=== PATIENT | male | born 1940 | race Caucasian/White ===

== ENCOUNTER 2019-04-22 15:51 | Outpatient (CLI) | payer MEDICARE, OTHER ==
--- NOTE | 2019-04-22 16:19 | RAD ---
AP pelvis one view HISTORY: Osteomyelitis. FINDINGS: Sacral alae and pelvic rings are intact. Internal fixation of the right hip partially visua lized. Moderate degenerative changes of the hips. Phleboliths project over the pelvis. No aggressive osseous destruction or soft tissue gas are reliably demonstrated. IMPRESSION: Chronic-type findings as detailed above. No aggressive osseous abnormalities are demonstr ated. Pacemaker would preclude an MRI. If there is ongoing concern for osteomyelitis, radionucleotide three -phase bone scan could be considered.
== END 2019-04-22 15:52 | disposition home or self-care (01) ==
LOC: BURRAD 15:51
PROVIDERS: ATTEND Family Medicine
DX: M86.9 Osteomyelitis, unspecified (principal); M16.0 Bilateral primary osteoarthritis of hip; Z96.641 Presence of right artificial hip joint
CPT/HCPCS: 72170